=== PATIENT | male | born 1930 | race Caucasian/White ===

== ENCOUNTER 2016-12-01 18:06 | Emergency (ER) | payer OTHER ==
[~2016-12-01 18:06] MED LIST: ARICEPT10 MG PO; ASPIRIN ADULT L81 MG PO; CLARITIN10 M2 PO; CLINDAMYCIN HC300 MG PO; CLONAZEPAM0.5 MG PO; COLACE100 MG; COMBIVENT RESPIMAT IN; DONEPEZIL HCL10 M1 PO; FLOMAX0.4 MG PO; FLOVENT DISKUS50 MCG; FLUTICASONE PR50 MCG; KLONOPIN0.5 MG PO; LEVAQUIN500 MG PO; LEVOTHYROXINE50 MCG PO; MIRALAX3350 N1 PO; NORCO1 TA1 PO; O2 IN; PRILOSEC20 MG PO; TRAZODONE HCL50 MG PO; TUMS500 MG PO; ZOLOFT50 MG PO; ZYRTEC ALLERGY10 MG
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
--- NOTE | 2016-12-01 20:46 | ED ORDER SUMMARY ---
..... Patient: MERRILL GONZALEZ OrderSheet [facility] VisitID: [id number] [place] [address] 86y, M Registration Date/Time: 12/01/2016 ORDER SHEET Weight: 90.7 kg (estimated) Allergies: No Known Drug Allergy GENERAL ORDERS: UA-Culture if indicated Urgent (18:27 12/01/2016 PHutchinson DO) (Ack 18:29 KHoerner) (19:19 SBalde R.N.) Cardiac Panel Stat (18:27 12/01/2016 PHutchinson DO) (Ack 18:29 KHoerner) (19:19 SBalde R.N.) BNP Urgent (18:12/01/2016 PHutchinson DO) (Ack 18:29 KHoerner) (19:19 SBalde R.N.) D-Dimer Urgent (18:12/01/2016 PHutchinson DO) (Ack 18:29 KHoerner) (19:19 SBalde R.N.) Amylase Urgent (18:27 12/01/2016 PHutchinson DO) (Ack 18:29 KHoerner) (19:19 SBalde R.N.) PT with INR Urgent (18:27 12/01/2016 PHutchinson DO) (Ack 18:29 KHoerner) (19:19 SBalde R.N.) Urine Drug Screen Urgent (18:27 12/01/2016 PHutchinson DO) (Ack 18:29 KHoerner) (19:19 SBalde R.N.) TSH Urgent (18:27 12/01/2016 PHutchinson DO) (Ack 18:29 KHoerner) (19:19 SBalde R.N.) Pulse oximeter (18:27 12/01/2016 PHutchinson DO) (19:19 SBalde R.N.) Vitals (18:12/01/2016 PHutchinson DO) (19:19 SBalde R.N.) POC Glucose (18:12/01/2016 PHutchinson DO) (19:14 RKaruga) CT Head wo Cont (old appearing right facial ecchymosis) Urgent (18:46 12/01/2016 [facility]) (Ack 18:47 Kim) (Cancelled: Patient Kgigeod35:46 Annetta Arriaza) MEDICATION ORDERS: IV FLUIDS: IV NS : initial bolus 500 mL (1000 mL/hr), then 250 mL/hr for X2 (NOW) (18:27 12/01/2016 [facility]) (19:20 Annetta Mendez.Mary Beth) Ceftriaxone IV 1 gm/50mL (NOW) (19:22 12/01/2016 [facility]) (20:11 Katie R.NAmalia) ORDER SHEET NOTES: [Electronically signed by Caroline Molina R.N. (21:53 12/01/2016)] [Electronically signed by Yusef Fleming DO (23:30 12/01/2016)] [Electronically locked/signed by Caroline Molina R.N. (21:53 12/01/2016)]
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
--- NOTE | 2016-12-01 20:46 | ED CLINICAL REPORT ---
Clinical Report - Physicians/Mid Levels Formerly [facility] [address] [place] [address] 12/01/2016 18:08 Patient: MERRILL GONZALEZ Time Seen: 18:26. Arrived- By private vehicle. Historian- patient and family. HISTORY OF PRESENT ILLNESS Chief Complaint: CHANGED MENTAL STATUS and CONFUSION. Combative. This started today and is still present. It was gradual in onset and has been waxing/waning. The patient has been confused. History of chronic dementia. No alcohol recently or recent drug use. No weakness, numbness or recent fall. No difficulty walking. Usually has normal mobility. Is not usually alert and oriented X3. Similar symptoms previously: Recent medical care: Not recently seen/assessed. REVIEW OF SYSTEMS No fever, headache, dizziness, chest pain or difficulty breathing. No cough, sputum production, sore throat, abdominal pain or nausea. No diarrhea, black stools, difficulty with urination, skin rash or joint pain. No vomiting or bloody stools. The patient sustained a head injury (pt denies this, but is noted to have old appearing right facial injury - nothing new acute per patient and son). All systems otherwise negative, except as recorded above. PAST HISTORY ( PCP: Dr Acuna; New provider: Lelia Hale Pneumonia. Environmental Allergies. Dementia. Thyroid Disease. Depression. Benign Prostatic Hypertrophy. Anxiety Reaction. Constipation. Hypertension SURGERIES: Cataract Surgery.). Medications: Aricept Oral 10 mg. Claritin Oral (Tablet 10 mg). ClonazePAM Oral 0.5 mg, daily. Colace Oral 100 mg. Combivent Respimat Inhalation. Docusate Calcium Oral. Domepezil 10mg , at bedtime. Flomax Oral 0.4 mg. Levothyroxine Sodium Oral 50 mcg. Oxygen 2L/nc continuous. Zoloft Oral 25 mg, daily. Zyrtec. Allergies: No Known Drug Allergy. SOCIAL HISTORY No alcohol use or drug use. Residence: lives with grand daughter Is a local resident. He lives with a family member. Prior service; He is a member of the [employer] He once resided in [place]. ADDITIONAL NOTES The nursing notes have been reviewed. PHYSICAL EXAM Vital Signs: 12/01/2016 18:21 BP: 158/91. Temp: 97.5 F. Appearance: Alert. Anxious. The patient is agitated. Head: No tenderness or swelling. Mild ecchymosis in the right frontal and scientologist region. Eyes: Pupils equal, round and reactive to light. ENT: Moist mucous membranes. Pharynx normal. Neck: Normal inspection. Neck supple. CVS: Tachycardia. Pulses normal. Respiratory: No respiratory distress. Abdomen: Soft and nontender. Back: Normal inspection. Skin: Skin warm and dry. Extremities: Extremities exhibit normal ROM. No calf tenderness. Neuro: Alert. Altered mental status. Eyes open spontaneously. Best verbal response: disoriented. Best motor response: obeys commands. Cranial nerves normal (as tested). No cerebellar findings. No motor deficit. No sensory deficit. No depression of the gag reflex. LABS, X-RAYS, AND EKG Laboratory Tests: UA-Culture if indicated: (YASMINE: 12/01/2016 00:01) ( MsgRcvd 12/01/2016 19:21) Final results Test Result Flag Units (Reference) URINE COLOR YELLOW 1 m.l. patient sample submitted. URINE APPEARANCE CLEAR URINE GLUCOSE NEGATIVE (NEGATIVE) URINE BILIRUBIN NEGATIVE (NEGATIVE) URINE KETONE NEGATIVE (NEGATIVE) URINE SPECIFIC GRAVITY 1.015 (1.010-1.030) URINE PH 7.5 (5.0-8.0) URINE PROTEIN TRACE (NEGATIVE) URINE UROBILINOGEN 0.2 EU/dL (0.2-1.0) URINE NITRITE NEGATIVE (NEGATIVE) URINE BLOOD TRACE-INTACT (NEGATIVE) URINE LEUK ESTERASE TRACE (NEGATIVE) URINE RBC 1-3 rbc/hpf (0-1) URINE WBC 10-15 wbc/hpf (0-1) URINE EPITHELIAL CELLS 0-1 EPI/hpf (0-5) URINE BACTERIA FEW (1+) (NONE SEEN) URINE COMMENT CULTURE INDICATED URINE CULTURES ARE SET-UP BASED ON THE FOLLOWING CRITERIA:POSITIVE NITRITEPOSITIVE LEUKOCYTE ESTERASEGREATER THAN 10 WHITE BLOOD CELLSMODERATE (2+) OR GREATER BACTERIA CBC w Diff: (YASMINE: 12/01/2016 18:51) ( MsgRcvd 12/01/2016 19:04) Final results Test Result Flag Units (Reference) WHITE BLOOD COUNT 8.3 K/uL (4.5-11.5) RED BLOOD COUNT 5.11 M/uL (4.50-5.90) HEMOGLOBIN 15.1 gm/dL (13.5-17.5) HEMATOCRIT 46.3 % (41.0-53.0) MEAN CELL VOLUME 91 fL (80-100) MEAN CORPUSCULAR HGB 30 pg (26-34) MEAN CORPUSCULAR HGB CONC 33 g/dL (31-37) RED CELL DISTRIBUTION WIDTH 13.2 % (11.6-14.8) PLATELET COUNT 320 K/uL (150-400) LYMPH % 28.9 % (25-40) MONO % 4.3 % (3-14) GRANULOCYTE % 66.8 PT with INR: (YASMINE: 12/01/2016 18:51) ( [facility] 12/01/2016 19:16) Final results Test Result Flag Units (Reference) INR 1.0 (0.8-1.2) Low Intensity Therapy: INR 1.5-2.0 PT range 18.5-23.1Mod.Intensity Therapy: INR 2.0-3.0 PT range 23.1-31.5High Intensity Therapy: INR 2.5-3.5 PT range 27.4-35.5High Intensity Therapy 2: INR 3.0-4.0 PT range 31.5-39.3 D-DIMER QUANTITATIVE < 0.27 L ug/mLFEU (0.27-0.52) The primary value of this quantitative assay relates toits negative predictive value (i.e. exclusion) of pulmonaryembolism/deep vein thrombosis/DIC.Elevated levels of d-dimer may also occur with:, age, cancer, inflammation, liver disease,post-op, infection, hematoma, coronary disease, peripheralarteriopathy, bleeding disorders and thrombolytic treatment.Results should be correlated with other clinical andradiological data.Testing Methodology: Latex Immunoassay Urine Drug Screen: (YASMINE: 12/01/2016 00:01) ( [facility] 12/01/2016 19:31) Final results Test Result Flag Units (Reference) AMPHETAMINE/METHAMPHETAMINE NEGATIVE (NEGATIVE) BARBITURATE NEGATIVE (NEGATIVE) BENZODIAZEPINE NEGATIVE (NEGATIVE) CANNABINOID NEGATIVE (NEGATIVE) COCAINE NEGATIVE (NEGATIVE) ECSTASY NEGATIVE (NEGATIVE) METHADONE NEGATIVE (NEGATIVE) OPIATE NEGATIVE (NEGATIVE) The urine drug screen is a qualitative screening test fordrug overdose and abuse. All screen results should beconsidered as presumptive.Drugs screened for are as follows:BenzodiazepinesCocaineAmphetamines/MetamphetaminesTHC (Tetrahydrocannabinol)OpiatesBarbituratesEcstasyMethadonePositive results are unconfirmed. For confirmation, notifythe lab for the specimen to be sent to the reference lab.All confirmations must be performed by a differentmethodology.The ingestion of natural herbal and plant productscontaining Ephedra/Ephedra metabolites can produce in urineone or more substances capable of cross reacting withamphetamine/methamphetamine immunoassays. These testsprovide a preliminary result only. A more specificalternative chemical method must be used to obtain aconfirmed analytical result. BNP: (YASMINE: 12/01/2016 18:51) ( [facility] 12/01/2016 19:25) Final results Test Result Flag Units (Reference) B-TYPE NATRIURETIC PEPTIDE 55.8 pg/ml (5-100) Amylase: (YASMINE: 12/01/2016 18:51) ( [facility] 12/01/2016 19:32) Final results Test Result Flag Units (Reference) AMYLASE 63 U/L (25-115) THYROID STIMULATING HORMONE 2.371 uIU/mL (0.30-3.74) CHEM 13 PANEL: (YASMINE: 12/01/2016 18:51) ( [facility] 12/01/2016 19:22) Final results Test Result Flag Units (Reference) GLUCOSE 88 mg/dL (70-110) BUN 24 H mg/dL (7-18) CREATININE 1.3 mg/dL (0.6-1.3) Estimated GFR 55.63 mL/min Estimated GFR- >60 mL/min Note: Persistent reduction over 3 months in eGFR<60 mL/min/1.73 m2 defines CKD. Patients with eGFR values>=60 mL/min/1.73 m2 may also have CKD if evidence ofpersistent proteinuria. Additional information may be foundat www.kidney.org. SODIUM 143 mmol/L (136-145) POTASSIUM 3.8 mmol/L (3.5-5.1) CHLORIDE 103 mmol/L (98-107) CARBON DIOXIDE 28 mmol/L (21-32) CALCIUM 9.5 mg/dL (8.5-10.1) TOTAL PROTEIN 7.9 g/dL (6.4-8.2) ALBUMIN 4.2 g/dL (3.3-5.0) BILIRUBIN, TOTAL 1.0 mg/dL (0.0-1.0) ALKALINE PHOSPHATASE 136 H U/L (46-116) AST (SGOT) 32 U/L (15-37) ALT (SGPT) 30 U/L (12-78) CPK 214 U/L (24-260) MAGNESIUM 2.0 mg/dL (1.8-2.4) TROPONIN I <0.05 L ng/mL (0.00-1.5) TROPONIN REFERENCE RANGE:<0.1 NEGATIVE0.1-1.5 INDETERMINANT>1.5 POSITIVE . Microbiology: Urine culture ordered. Pulse Oximetry: 12/01/2016 18:41 O2 saturation: 100%. (FIO2 - room air). Interpretation: normal. PROGRESS AND PROCEDURES Course of Care: Normal Saline 1 liter IVPB given. Ceftriaxone 1gm IVP given. 20:45 12/01/16. Patient is stable. Physical exam findings are improved. Symptoms much better. All c/w UTI and mild dehydration in the setting of underlying dementia. Patient/family counseled. Old ED records reviewed. Disposition: Discharged. Condition: stable and improved. CLINICAL IMPRESSION Acute mental status change with confusion. Acute urinary tract infection with cystitis. INSTRUCTIONS Drink plenty of fluids. Warnings: Further evaluation is necessary in order to recheck abnormal lab, obtain test results, conduct further tests and assess the possibility of serious illness. It is very important to follow up with a physician. GENERAL WARNINGS: Return or contact your physician immediately if your condition worsens or changes unexpectedly, if not improving as expected, or if other problems arise. Your Current Medications: CONTINUE TAKING THE FOLLOWING MEDICATIONS: Aricept Oral : 10 mg. Aspirin Oral : Tablet Chewable 81 mg. Claritin Oral : Tablet 10 mg. Colace Oral : 100 mg. Combivent Respimat Inhalation. Docusate Calcium Oral. Domepezil 10mg * : at bedtime. Flomax Oral : 0.4 mg. Levothyroxine Sodium Oral : 50 mcg. Mens Multi Vitamin & Mineral Oral. Montelukast Sodium Oral. Omeprazole Oral : 20 mg daily. Oxygen 2L/nc continuous*. TraZODone HCl Oral : 50 mg at bedtime. Vitamin B-6 Oral. Zyrtec*. Prescription Medications: Bactrim DS 800 mg / 160 mg: Take 1 tablet orally every 12 hours for 7 days. Dispense fourteen (14). No refills. Substitution is permissible. OTC Medications: Acetaminophen (available over the counter): take according to label instructions. Follow-up: Follow up with your doctor tomorrow as scheduled. Follow-up with: Gamal Acuna MD, Family Practice, , [facility], [address] [facility], [address] Follow up. Reason for referral: You may go to the walk-in clinic or to your primary care provider as needed in the next 2 days - sooner if worse. (Electronically signed by Yusef Fleming DO 12/01/2016 23:30)
--- NOTE | 2016-12-01 20:46 | ED CLINICAL REPORT ---
Clinical Report - Physicians/Mid Levels [facility] [address] [place] [address] 12/01/2016 18:08 Patient: MERRILL GONZALEZ Time Seen: 18:26. Arrived- By private vehicle. Historian- patient and family. HISTORY OF PRESENT ILLNESS Chief Complaint: CHANGED MENTAL STATUS and CONFUSION. Combative. This started today and is still present. It was gradual in onset and has been waxing/waning. The patient has been confused. History of chronic dementia. No alcohol recently or recent drug use. No weakness, numbness or recent fall. No difficulty walking. Usually has normal mobility. Is not usually alert and oriented X3. Similar symptoms previously: Recent medical care: Not recently seen/assessed. REVIEW OF SYSTEMS No fever, headache, dizziness, chest pain or difficulty breathing. No cough, sputum production, sore throat, abdominal pain or nausea. No diarrhea, black stools, difficulty with urination, skin rash or joint pain. No vomiting or bloody stools. The patient sustained a head injury (pt denies this, but is noted to have old appearing right facial injury - nothing new acute per patient and son). All systems otherwise negative, except as recorded above. PAST HISTORY ( PCP: Dr Acuna; New provider: Lelia Hale Pneumonia. Environmental Allergies. Dementia. Thyroid Disease. Depression. Benign Prostatic Hypertrophy. Anxiety Reaction. Constipation. Hypertension SURGERIES: Cataract Surgery.). Medications: Aricept Oral 10 mg. Claritin Oral (Tablet 10 mg). ClonazePAM Oral 0.5 mg, daily. Colace Oral 100 mg. Combivent Respimat Inhalation. Docusate Calcium Oral. Domepezil 10mg , at bedtime. Flomax Oral 0.4 mg. Levothyroxine Sodium Oral 50 mcg. Oxygen 2L/nc continuous. Zoloft Oral 25 mg, daily. Zyrtec. Allergies: No Known Drug Allergy. SOCIAL HISTORY No alcohol use or drug use. Residence: lives with grand daughter Is a local resident. He lives with a family member. Prior service; He is a member of the [employer]; He once resided in [place]. ADDITIONAL NOTES The nursing notes have been reviewed. PHYSICAL EXAM Vital Signs: 12/01/2016 18:21 BP: 158/91. Temp: 97.5 F. Appearance: Alert. Anxious. The patient is agitated. Head: No tenderness or swelling. Mild ecchymosis in the right frontal and religion region. Eyes: Pupils equal, round and reactive to light. ENT: Moist mucous membranes. Pharynx normal. Neck: Normal inspection. Neck supple. CVS: Tachycardia. Pulses normal. Respiratory: No respiratory distress. Abdomen: Soft and nontender. Back: Normal inspection. Skin: Skin warm and dry. Extremities: Extremities exhibit normal ROM. No calf tenderness. Neuro: Alert. Altered mental status. Eyes open spontaneously. Best verbal response: disoriented. Best motor response: obeys commands. Cranial nerves normal (as tested). No cerebellar findings. No motor deficit. No sensory deficit. No depression of the gag reflex. LABS, X-RAYS, AND EKG Laboratory Tests: UA-Culture if indicated: (YASMINE: 12/01/2016 00:01) ( MsgRcvd 12/01/2016 19:21) Final results Test Result Flag Units (Reference) URINE COLOR YELLOW 1 m.l. patient sample submitted. URINE APPEARANCE CLEAR URINE GLUCOSE NEGATIVE (NEGATIVE) URINE BILIRUBIN NEGATIVE (NEGATIVE) URINE KETONE NEGATIVE (NEGATIVE) URINE SPECIFIC GRAVITY 1.015 (1.010-1.030) URINE PH 7.5 (5.0-8.0) URINE PROTEIN TRACE (NEGATIVE) URINE UROBILINOGEN 0.2 EU/dL (0.2-1.0) URINE NITRITE NEGATIVE (NEGATIVE) URINE BLOOD TRACE-INTACT (NEGATIVE) URINE LEUK ESTERASE TRACE (NEGATIVE) URINE RBC 1-3 rbc/hpf (0-1) URINE WBC 10-15 wbc/hpf (0-1) URINE EPITHELIAL CELLS 0-1 EPI/hpf (0-5) URINE BACTERIA FEW (1+) (NONE SEEN) URINE COMMENT CULTURE INDICATED URINE CULTURES ARE SET-UP BASED ON THE FOLLOWING CRITERIA:POSITIVE NITRITEPOSITIVE LEUKOCYTE ESTERASEGREATER THAN 10 WHITE BLOOD CELLSMODERATE (2+) OR GREATER BACTERIA CBC w Diff: (YASMINE: 12/01/2016 18:51) ( MsgRcvd 12/01/2016 19:04) Final results Test Result Flag Units (Reference) WHITE BLOOD COUNT 8.3 K/uL (4.5-11.5) RED BLOOD COUNT 5.11 M/uL (4.50-5.90) HEMOGLOBIN 15.1 gm/dL (13.5-17.5) HEMATOCRIT 46.3 % (41.0-53.0) MEAN CELL VOLUME 91 fL (80-100) MEAN CORPUSCULAR HGB 30 pg (26-34) MEAN CORPUSCULAR HGB CONC 33 g/dL (31-37) RED CELL DISTRIBUTION WIDTH 13.2 % (11.6-14.8) PLATELET COUNT 320 K/uL (150-400) LYMPH % 28.9 % (25-40) MONO % 4.3 % (3-14) GRANULOCYTE % 66.8 PT with INR: (YASMINE: 12/01/2016 18:51) ( [facility] 19:16) Final results Test Result Flag Units (Reference) INR 1.0 (0.8-1.2) Low Intensity Therapy: INR 1.5-2.0 PT range 18.5-23.1Mod.Intensity Therapy: INR 2.0-3.0 PT range 23.1-31.5High Intensity Therapy: INR 2.5-3.5 PT range 27.4-35.5High Intensity Therapy 2: INR 3.0-4.0 PT range 31.5-39.3 D-DIMER QUANTITATIVE < 0.27 L ug/mLFEU (0.27-0.52) The primary value of this quantitative assay relates toits negative predictive value (i.e. exclusion) of pulmonaryembolism/deep vein thrombosis/DIC.Elevated levels of d-dimer may also occur with:, age, cancer, inflammation, liver disease,post-op, infection, hematoma, coronary disease, peripheralarteriopathy, bleeding disorders and thrombolytic treatment.Results should be correlated with other clinical andradiological data.Testing Methodology: Latex Immunoassay Urine Drug Screen: (YASMINE: 12/01/2016 00:01) ( [facility] 12/01/2016 19:31) Final results Test Result Flag Units (Reference) AMPHETAMINE/METHAMPHETAMINE NEGATIVE (NEGATIVE) BARBITURATE NEGATIVE (NEGATIVE) BENZODIAZEPINE NEGATIVE (NEGATIVE) CANNABINOID NEGATIVE (NEGATIVE) COCAINE NEGATIVE (NEGATIVE) ECSTASY NEGATIVE (NEGATIVE) METHADONE NEGATIVE (NEGATIVE) OPIATE NEGATIVE (NEGATIVE) The urine drug screen is a qualitative screening test fordrug overdose and abuse. All screen results should beconsidered as presumptive.Drugs screened for are as follows:BenzodiazepinesCocaineAmphetamines/MetamphetaminesTHC (Tetrahydrocannabinol)OpiatesBarbituratesEcstasyMethadonePositive results are unconfirmed. For confirmation, notifythe lab for the specimen to be sent to the reference lab.All confirmations must be performed by a differentmethodology.The ingestion of natural herbal and plant productscontaining Ephedra/Ephedra metabolites can produce in urineone or more substances capable of cross reacting withamphetamine/methamphetamine immunoassays. These testsprovide a preliminary result only. A more specificalternative chemical method must be used to obtain aconfirmed analytical result. BNP: (YASMINE: 12/01/2016 18:51) ( [facility] 12/01/2016 19:25) Final results Test Result Flag Units (Reference) B-TYPE NATRIURETIC PEPTIDE 55.8 pg/ml (5-100) Amylase: (YAMSINE: 12/01/2016 18:51) ( [facility] 12/01/2016 19:32) Final results Test Result Flag Units (Reference) AMYLASE 63 U/L (25-115) THYROID STIMULATING HORMONE 2.371 uIU/mL (0.30-3.74) CHEM 13 PANEL: (YASMINE: 12/01/2016 18:51) ( [facility] 12/01/2016 19:22) Final results Test Result Flag Units (Reference) GLUCOSE 88 mg/dL (70-110) BUN 24 H mg/dL (7-18) CREATININE 1.3 mg/dL (0.6-1.3) Estimated GFR 55.63 mL/min Estimated GFR- >60 mL/min Note: Persistent reduction over 3 months in eGFR<60 mL/min/1.73 m2 defines CKD. Patients with eGFR values>=60 mL/min/1.73 m2 may also have CKD if evidence ofpersistent proteinuria. Additional information may be foundat www.kidney.org. SODIUM 143 mmol/L (136-145) POTASSIUM 3.8 mmol/L (3.5-5.1) CHLORIDE 103 mmol/L (98-107) CARBON DIOXIDE 28 mmol/L (21-32) CALCIUM 9.5 mg/dL (8.5-10.1) TOTAL PROTEIN 7.9 g/dL (6.4-8.2) ALBUMIN 4.2 g/dL (3.3-5.0) BILIRUBIN, TOTAL 1.0 mg/dL (0.0-1.0) ALKALINE PHOSPHATASE 136 H U/L (46-116) AST (SGOT) 32 U/L (15-37) ALT (SGPT) 30 U/L (12-78) CPK 214 U/L (24-260) MAGNESIUM 2.0 mg/dL (1.8-2.4) TROPONIN I <0.05 L ng/mL (0.00-1.5) TROPONIN REFERENCE RANGE:<0.1 NEGATIVE0.1-1.5 INDETERMINANT>1.5 POSITIVE . Microbiology: Urine culture ordered. Pulse Oximetry: 12/01/2016 18:41 O2 saturation: 100%. (FIO2 - room air). Interpretation: normal. PROGRESS AND PROCEDURES Course of Care: Normal Saline 1 liter IVPB given. Ceftriaxone 1gm IVP given. 20:45 12/01/16. Patient is stable. Physical exam findings are improved. Symptoms much better. All c/w UTI and mild dehydration in the setting of underlying dementia. Patient/family counseled. Old ED records reviewed. Disposition: Discharged. Condition: stable and improved. CLINICAL IMPRESSION Acute mental status change with confusion. Acute urinary tract infection with cystitis. INSTRUCTIONS Drink plenty of fluids. Warnings: Further evaluation is necessary in order to recheck abnormal lab, obtain test results, conduct further tests and assess the possibility of serious illness. It is very important to follow up with a physician. GENERAL WARNINGS: Return or contact your physician immediately if your condition worsens or changes unexpectedly, if not improving as expected, or if other problems arise. Your Current Medications: CONTINUE TAKING THE FOLLOWING MEDICATIONS: Aricept Oral : 10 mg. Aspirin Oral : Tablet Chewable 81 mg. Claritin Oral : Tablet 10 mg. Colace Oral : 100 mg. Combivent Respimat Inhalation. Docusate Calcium Oral. Domepezil 10mg * : at bedtime. Flomax Oral : 0.4 mg. Levothyroxine Sodium Oral : 50 mcg. Mens Multi Vitamin & Mineral Oral. Montelukast Sodium Oral. Omeprazole Oral : 20 mg daily. Oxygen 2L/nc continuous*. TraZODone HCl Oral : 50 mg at bedtime. Vitamin B-6 Oral. Zyrtec*. Prescription Medications: Bactrim DS 800 mg / 160 mg: Take 1 tablet orally every 12 hours for 7 days. Dispense fourteen (14). No refills. Substitution is permissible. OTC Medications: Acetaminophen (available over the counter): take according to label instructions. Follow-up: Follow up with your doctor tomorrow as scheduled. Follow-up with: Gamal Acuna MD, Family Practice, , [facility], [address] [facility], [address] Follow up. Reason for referral: You may go to the walk-in clinic or to your primary care provider as needed in the next 2 days - sooner if worse. (Electronically signed by Yusef Fleming DO 12/01/2016 23:30)
--- NOTE | 2016-12-01 20:46 | ED ORDER SUMMARY ---
..... Patient: MERRILL GONZALEZ OrderSheet [facility] VisitID: [id number] [place] [address] 86y, M Registration Date/Time: 12/01/2016 ORDER SHEET Weight: 90.7 kg (estimated) Allergies: No Known Drug Allergy GENERAL ORDERS: UA-Culture if indicated Urgent (18:27 12/01/2016 PHutchinson DO) (Ack 18:29 KHoerner) (19:19 SBalde R.N.) Cardiac Panel Stat (18:27 12/01/2016 PHutchinson DO) (Ack 18:29 KHoerner) (19:19 SBalde R.N.) BNP Urgent (18:12/01/2016 PHutchinson DO) (Ack 18:29 KHoerner) (19:19 SBalde R.N.) D-Dimer Urgent (18:12/01/2016 PHutchinson DO) (Ack 18:29 KHoerner) (19:19 SBalde R.N.) Amylase Urgent (18:27 12/01/2016 PHutchinson DO) (Ack 18:29 KHoerner) (19:19 SBalde R.N.) PT with INR Urgent (18:27 12/01/2016 PHutchinson DO) (Ack 18:29 KHoerner) (19:19 SBalde R.N.) Urine Drug Screen Urgent (18:27 12/01/2016 PHutchinson DO) (Ack 18:29 KHoerner) (19:19 SBalde R.N.) TSH Urgent (18:27 12/01/2016 PHutchinson DO) (Ack 18:29 KHoerner) (19:19 SBalde R.N.) Pulse oximeter (18:27 12/01/2016 PHutchinson DO) (19:19 SBalde R.N.) Vitals (18:12/01/2016 PHutchinson DO) (19:19 SBalde R.N.) POC Glucose (18:12/01/2016 PHutchinson DO) (19:14 RKaruga) CT Head wo Cont (old appearing right facial ecchymosis) Urgent (18:46 12/01/2016 [facility]) (Ack 18:47 Kim) (Cancelled: Patient Btrryge03:46 Annetta Arriaza) MEDICATION ORDERS: IV FLUIDS: IV NS : initial bolus 500 mL (1000 mL/hr), then 250 mL/hr for X2 (NOW) (18:27 12/01/2016 [facility]) (19:20 Annetta Mendez.Mary Beth) Ceftriaxone IV 1 gm/50mL (NOW) (19:22 12/01/2016 [facility]) (20:11 Katie R.NAmalia) ORDER SHEET NOTES: [Electronically signed by Caroline Molina R.N. (21:53 12/01/2016)] [Electronically signed by Yusef Fleming DO (23:30 12/01/2016)] [Electronically locked/signed by Caroline Molina R.N. (21:53 12/01/2016)]
--- NOTE | 2016-12-01 23:30 | ED MED RECONCILIATION SUMMARY ---
Patient: MERRILL GONZALEZ Medication Reconciliation Report [facility] VisitID: [id number] [address] [place] [address] 86y, M Registration Date/Time: 12/01/2016 Weight: 90.7 kg Height/Length: 69 in. BMI: 29.5 ALLERGIES: No Known Drug Allergy The patient's Home Medications are listed below: CONTINUE TAKING THE FOLLOWING MEDICATIONS: Aricept Oral 10 mg Aspirin Oral (81 mg) Claritin Oral (10 mg) Colace Oral 100 mg Combivent Respimat Inhalation Docusate Calcium Oral Domepezil 10mg , at bedtime Flomax Oral 0.4 mg Levothyroxine Sodium Oral 50 mcg Mens Multi Vitamin & Mineral Oral Montelukast Sodium Oral Omeprazole Oral 20 mg, daily Oxygen 2L/nc continuous TraZODone HCl Oral 50 mg, at bedtime Vitamin B-6 Oral Zyrtec The source(s) of the original Home Medication information: Not obtained. The following Medications were given to the patient in the Emergency Department: IV NS IV Fluids bolus 500 mL over 30 minute(s), then 250 mL/hr, administered: 12/01/2016 7:19:00 PM Ceftriaxone [IVPB] IVPB bolus 0, then 1 gm 50 mL/hr, administered: 12/01/2016 8:09:00 PM The following Medications were prescribed to the patient: Acetaminophen (available over the counter): take according to label instructions. -- Yusef Fleming DO Bactrim DS 800 mg / 160 mg: Take 1 tablet orally every 12 hours for 7 days. Dispense fourteen (14). No refills. Substitution is permissible. -- Yusef Fleming DO
--- NOTE | 2016-12-01 23:30 | ED MED RECONCILIATION SUMMARY ---
Patient: MERRILL GONZALEZ Medication Reconciliation Report [facility] VisitID: [id number] [address] [place] [address] 86y, M Registration Date/Time: 12/01/2016 Weight: 90.7 kg Height/Length: 69 in. BMI: 29.5 ALLERGIES: No Known Drug Allergy The patient's Home Medications are listed below: CONTINUE TAKING THE FOLLOWING MEDICATIONS: Aricept Oral 10 mg Aspirin Oral (81 mg) Claritin Oral (10 mg) Colace Oral 100 mg Combivent Respimat Inhalation Docusate Calcium Oral Domepezil 10mg , at bedtime Flomax Oral 0.4 mg Levothyroxine Sodium Oral 50 mcg Mens Multi Vitamin & Mineral Oral Montelukast Sodium Oral Omeprazole Oral 20 mg, daily Oxygen 2L/nc continuous TraZODone HCl Oral 50 mg, at bedtime Vitamin B-6 Oral Zyrtec The source(s) of the original Home Medication information: Not obtained. The following Medications were given to the patient in the Emergency Department: IV NS IV Fluids bolus 500 mL over 30 minute(s), then 250 mL/hr, administered: 12/01/2016 7:19:00 PM Ceftriaxone [IVPB] IVPB bolus 0, then 1 gm 50 mL/hr, administered: 12/01/2016 8:09:00 PM The following Medications were prescribed to the patient: Acetaminophen (available over the counter): take according to label instructions. -- Yusef Fleming DO Bactrim DS 800 mg / 160 mg: Take 1 tablet orally every 12 hours for 7 days. Dispense fourteen (14). No refills. Substitution is permissible. -- Yusef Fleming DO
--- NOTE | 2016-12-01 23:30 | ED DISCHARGE INSTRUCTIONS ---
Patient: MERRILL GONZALEZ General Instructions [facility] VisitID: [id number] Jered Ballard [place], [place] [id number] 86y, M Registration Date/Time: 12/01/2016 Acute mental status change with confusion. Acute urinary tract infection with cystitis. INSTRUCTIONS Drink plenty of fluids. Warnings: Further evaluation is necessary in order to recheck abnormal lab, obtain test results, conduct further tests and assess the possibility of serious illness. It is very important to follow up with a physician. GENERAL WARNINGS: Return or contact your physician immediately if your condition worsens or changes unexpectedly, if not improving as expected, or if other problems arise. Your Current Medications: CONTINUE TAKING THE FOLLOWING MEDICATIONS: Aricept Oral : 10 mg. Aspirin Oral : Tablet Chewable 81 mg. Claritin Oral : Tablet 10 mg. Colace Oral : 100 mg. Combivent Respimat Inhalation. Docusate Calcium Oral. Domepezil 10mg * : at bedtime. Flomax Oral : 0.4 mg. Levothyroxine Sodium Oral : 50 mcg. Mens Multi Vitamin & Mineral Oral. Montelukast Sodium Oral. Omeprazole Oral : 20 mg daily. Oxygen 2L/nc continuous*. TraZODone HCl Oral : 50 mg at bedtime. Vitamin B-6 Oral. Zyrtec*. Prescription Medications: Bactrim DS 800 mg / 160 mg: Take 1 tablet orally every 12 hours for 7 days. Dispense fourteen (14). No refills. Substitution is permissible. OTC Medications: Acetaminophen (available over the counter): take according to label instructions. Follow-up: Follow up with your doctor tomorrow as scheduled. Follow-up with: Gamal Acuna MD, Family Practice, , [facility], [address] [place], [place] [address]nd [facility] [place], [id number] Follow up. Reason for referral: You may go to the walk-in clinic or to your primary care provider as needed in the next 2 days - sooner if worse. ADDITIONAL INFORMATION Confusion Confusion is a change in a persons ability to think clearly. There may be trouble recognizing familiar people and places, or knowing what day it is. Memory, judgement and decision-making may also be affected. In severe cases there may be limited or no response to verbal commands. Confusion may occur suddenly or develop gradually over time. There are many injuries and medical conditions that can cause this problem. These include brain injury, side effect of medication, intoxication, withdrawal from drugs, infection, stroke, dementia,mental illness and other causes. The exam and testing today did not show the cause of this problem. Further testing will be needed. Specific treatment and hope for recovery depend on the cause of this symptom. Home Care: Be sure someone is with the confused person at all times. He/she should not be left alone or unsupervised. Keep medicines (prescription and [id number]) in a secure place, under the caregivers control. A person with confusion should not be allowed to take their own medicines.This needs to be supervised by the caregiver. Ways to help a person with confusion: Activities:Establish a daily routine. Change can be a source of stress for someone with confusion. Make a time schedule for common tasks such as: bathing, dressing, taking medicines, meals, going for walks, shopping, naps and bed time. Communication:Speak slowly and clearly with a gentle tone of voice. Use short simple words and sentences. Ask one question at a time. Do not interrupt, criticize or argue. Be calm and supportive. Use friendly facial expressions. Use pointing and touching to help communicate. If there has been loss of long-term memory, do not ask questions about past events. This would only cause frustration for the person. Behavioral tips:Use lists, signs, family photos, clocks and calendars as memory aids. Label cabinets and drawers. Try to distract, not confront, the patient. When he/she becomes frustrated or upset, redirect his/her attention to eating or some other activity of interest. Medical-Legal tips: If this proves to be a permanent condition, talk to your doctor and/or vice president of instruction about getting a Power of Cargo Mate for health care and for financial decisions. It is best to do this while the person can still sign legal documents and make his/raul own legal decisions. Otherwise, a court order will be required. Follow-Up with the patients doctor or as advised by our staff for further testing. Get Prompt Medical Attention if any of the following occur: Frequent falling Refusal to eat or drink Violent behavior or behavior becomes too difficult to manage at home Increased drowsiness, or failure to respond normally Increasing headache, nausea or repeated vomiting Numbness or weakness of the face, one arm or one leg Slurred speech, trouble speaking, walking or seeing Fainting spell, dizziness or seizure Unexplained fever over 100.4 F (38.0 C) oral Bladder Infection,Male (Adult) A bladder infection ("cystitis" or "UTI") usually causes a constant urge to urinate, and a burning when passing urine. Urine may be cloudy, smelly or dark. There may be also be pain in the lower abdomen. Cystitis in males is not common. It may be caused by a partial blockage in the urinary system that keeps the bladder from emptying completely. This is most often related to an enlarged prostate gland. Home Care: Drink lots of fluids (at least 6-8 glasses a day). This will flush the bacteria out of your bladder. Avoid sexual intercourse until your symptoms are gone. Avoid caffeine, alcohol, and spicy foods. They could irritate the bladder. A bladder infection is treated with antibiotics. You may also be given Pyridium (generic - phenazopyridine) to reduce burning with urination. This will cause urine to become a bright orange color, which can stain clothing. Follow Up with your doctor or this facility if ALL symptoms have not cleared within five days. It is important to keep your follow up appointment to discuss with your doctor the need for further tests of the urinary tract. Get Prompt Medical Attention if any of the following occur: Fever of 100.4F (38C) or higher, or as directed by your healthcare provider No improvement by the third day of treatment Increasing back or abdominal pain Repeated vomiting; unable to keep medicine down Weakness, dizziness or fainting Sulfamethoxazole, Trimethoprim Oral tablet What is this medicine? SULFAMETHOXAZOLE; TRIMETHOPRIM or SMX-TMP (suhl fuh meth OK arlen zohl; trye METH oh prim) is a combination of a sulfonamide antibiotic and a second antibiotic, trimethoprim. It is used to treat or prevent certain kinds of bacterial infections. It will not work for colds, flu, or other viral infections. How should I use this medicine? Take this medicine by mouth with a full glass of water. Follow the directions on the prescription label. Take your medicine at regular intervals. Do not take it more often than directed. Do not skip doses or stop your medicine early. Talk to your academic support assistant regarding the use of this medicine in children. Special care may be needed. This medicine has been used in children as young as 2 months of age. What side effects may I notice from receiving this medicine? Side effects that you should report to your doctor or health health care recruiter as soon as possible: allergic reactions like skin rash or hives, swelling of the face, lips, or tongue breathing problems fever or chills, sore throat irregular heartbeat, chest pain joint or muscle pain pain or difficulty passing urine red pinpoint spots on skin redness, blistering, peeling or loosening of the skin, including inside the mouth unusual bleeding or bruising unusually weak or tired yellowing of the eyes or skin Side effects that usually do not require medical attention (report to your doctor or health health care recruiter if they continue or are bothersome): diarrhea dizziness headache loss of appetite nausea, vomiting nervousness What may interact with this medicine? Do not take this medicine with any of the following medications: aminobenzoate potassium dofetilide metronidazole This medicine may also interact with the following medications: IVET inhibitors like benazepril, enalapril, lisinopril, and ramipril cyclosporine digoxin diuretics indomethacin medicines for diabetes methenamine methotrexate phenytoin potassium supplements pyrimethamine sulfinpyrazone tricyclic antidepressants warfarin What if I miss a dose? If you miss a dose, take it as soon as you can. If it is almost time for your next dose, take only that dose. Do not take double or extra doses. Where should I keep my medicine? Keep out of the reach of children. Store at room temperature between 20 to 25 degrees C (68 to 77 degrees F). Protect from light. Throw away any unused medicine after the expiration date. What should I tell my health care provider before I take this medicine? They need to know if you have any of these conditions: anemia asthma being treated with anticonvulsants if you frequently drink alcohol containing drinks kidney disease liver disease low level of folic acid or zvkvndu-[id number]-bvddyvlcy dehydrogenase poor nutrition or malabsorption porphyria severe allergies thyroid disorder an unusual or allergic reaction to sulfamethoxazole, trimethoprim, sulfa drugs, other medicines, foods, dyes, or preservatives or trying to get breast-feeding What should I watch for while using this medicine? Tell your doctor or health health care recruiter if your symptoms do not improve. Drink several glasses of water a day to reduce the risk of kidney problems. Do not treat diarrhea with over the counter products. Contact your doctor if you have diarrhea that lasts more than 2 days or if it is severe and watery. This medicine can make you more sensitive to the sun. Keep out of the sun. If you cannot avoid being in the sun, wear protective clothing and use a sunscreen. Do not use sun lamps or tanning beds/booths. Acetaminophen Oral tablet What is this medicine? ACETAMINOPHEN (a set a JAN valeria fen) is a pain reliever. It is used to treat mild pain and fever. How should I use this medicine? Take this medicine by mouth with a glass of water. Follow the directions on the package or prescription label. Take your medicine at regular intervals. Do not take your medicine more often than directed. Talk to your academic support assistant regarding the use of this medicine in children. While this drug may be prescribed for children as young as 6 years of age for selected conditions, precautions do apply. What side effects may I notice from receiving this medicine? Side effects that you should report to your doctor or health health care recruiter as soon as possible: allergic reactions like skin rash, itching or hives, swelling of the face, lips, or tongue breathing problems fever or sore throat redness, blistering, peeling or loosening of the skin, including inside the mouth trouble passing urine or change in the amount of urine unusual bleeding or bruising unusually weak or tired yellowing of the eyes or skin Side effects that usually do not require medical attention (report to your doctor or health health care recruiter if they continue or are bothersome): headache nausea, stomach upset What may interact with this medicine? alcohol imatinib isoniazid other medicines with acetaminophen What if I miss a dose? If you miss a dose, take it as soon as you can. If it is almost time for your next dose, take only that dose. Do not take double or extra doses. Where should I keep my medicine? Keep out of reach of children. Store at room temperature between 20 and 25 degrees C (68 and 77 degrees F). Protect from moisture and heat. Throw away any unused medicine after the expiration date. What should I tell my health care provider before I take this medicine? They need to know if you have any of these conditions: if you frequently drink alcohol containing drinks liver disease an unusual or allergic reaction to acetaminophen, other medicines, foods, dyes or preservatives or trying to get breast-feeding What should I watch for while using this medicine? Tell your doctor or health health care recruiter if the pain lasts more than 10 days (5 days for children), if it gets worse, or if there is a new or different kind of pain. Also, check with your doctor if a fever lasts for more than 3 days. Do not take other medicines that contain acetaminophen with this medicine. Always read labels carefully. If you have questions, ask your doctor or pharmacist. If you take too much acetaminophen get medical help right away. Too much acetaminophen can be very dangerous and cause liver damage. Even if you do not have symptoms, it is important to get help right away. You have been given the following additional information: Confusion Bladder Infection, Male (Adult) Sulfamethoxazole, Trimethoprim Oral tablet Acetaminophen Oral tablet (Electronically signed by Yusef Fleming DO 12/01/2016 23:30)
--- NOTE | 2016-12-01 23:30 | ED DISCHARGE INSTRUCTIONS ---
Patient: MERRILL GONZALEZ General Instructions [facility] VisitID: [id number] Jered [address]ard [place], [place] [id number] 86y, M Registration Date/Time: 12/01/2016 Acute mental status change with confusion. Acute urinary tract infection with cystitis. INSTRUCTIONS Drink plenty of fluids. Warnings: Further evaluation is necessary in order to recheck abnormal lab, obtain test results, conduct further tests and assess the possibility of serious illness. It is very important to follow up with a physician. GENERAL WARNINGS: Return or contact your physician immediately if your condition worsens or changes unexpectedly, if not improving as expected, or if other problems arise. Your Current Medications: CONTINUE TAKING THE FOLLOWING MEDICATIONS: Aricept Oral : 10 mg. Aspirin Oral : Tablet Chewable 81 mg. Claritin Oral : Tablet 10 mg. Colace Oral : 100 mg. Combivent Respimat Inhalation. Docusate Calcium Oral. Domepezil 10mg * : at bedtime. Flomax Oral : 0.4 mg. Levothyroxine Sodium Oral : 50 mcg. Mens Multi Vitamin & Mineral Oral. Montelukast Sodium Oral. Omeprazole Oral : 20 mg daily. Oxygen 2L/nc continuous*. TraZODone HCl Oral : 50 mg at bedtime. Vitamin B-6 Oral. Zyrtec*. Prescription Medications: Bactrim DS 800 mg / 160 mg: Take 1 tablet orally every 12 hours for 7 days. Dispense fourteen (14). No refills. Substitution is permissible. OTC Medications: Acetaminophen (available over the counter): take according to label instructions. Follow-up: Follow up with your doctor tomorrow as scheduled. Follow-up with: Gamal Acuna MD, Family Practice, , [facility], [address] [place], [place] [address]nd [facility] [place], [id number] Follow up. Reason for referral: You may go to the walk-in clinic or to your primary care provider as needed in the next 2 days - sooner if worse. ADDITIONAL INFORMATION Confusion Confusion is a change in a persons ability to think clearly. There may be trouble recognizing familiar people and places, or knowing what day it is. Memory, judgement and decision-making may also be affected. In severe cases there may be limited or no response to verbal commands. Confusion may occur suddenly or develop gradually over time. There are many injuries and medical conditions that can cause this problem. These include brain injury, side effect of medication, intoxication, withdrawal from drugs, infection, stroke, dementia,mental illness and other causes. The exam and testing today did not show the cause of this problem. Further testing will be needed. Specific treatment and hope for recovery depend on the cause of this symptom. Home Care: Be sure someone is with the confused person at all times. He/she should not be left alone or unsupervised. Keep medicines (prescription and [id number]) in a secure place, under the caregivers control. A person with confusion should not be allowed to take their own medicines.This needs to be supervised by the caregiver. Ways to help a person with confusion: Activities:Establish a daily routine. Change can be a source of stress for someone with confusion. Make a time schedule for common tasks such as: bathing, dressing, taking medicines, meals, going for walks, shopping, naps and bed time. Communication:Speak slowly and clearly with a gentle tone of voice. Use short simple words and sentences. Ask one question at a time. Do not interrupt, criticize or argue. Be calm and supportive. Use friendly facial expressions. Use pointing and touching to help communicate. If there has been loss of long-term memory, do not ask questions about past events. This would only cause frustration for the person. Behavioral tips:Use lists, signs, family photos, clocks and calendars as memory aids. Label cabinets and drawers. Try to distract, not confront, the patient. When he/she becomes frustrated or upset, redirect his/her attention to eating or some other activity of interest. Medical-Legal tips: If this proves to be a permanent condition, talk to your doctor and/or petroleum refinery operator about getting a Power of Director Of Quality Control for health care and for financial decisions. It is best to do this while the person can still sign legal documents and make his/raul own legal decisions. Otherwise, a court order will be required. Follow-Up with the patients doctor or as advised by our staff for further testing. Get Prompt Medical Attention if any of the following occur: Frequent falling Refusal to eat or drink Violent behavior or behavior becomes too difficult to manage at home Increased drowsiness, or failure to respond normally Increasing headache, nausea or repeated vomiting Numbness or weakness of the face, one arm or one leg Slurred speech, trouble speaking, walking or seeing Fainting spell, dizziness or seizure Unexplained fever over 100.4 F (38.0 C) oral Bladder Infection,Male (Adult) A bladder infection ("cystitis" or "UTI") usually causes a constant urge to urinate, and a burning when passing urine. Urine may be cloudy, smelly or dark. There may be also be pain in the lower abdomen. Cystitis in males is not common. It may be caused by a partial blockage in the urinary system that keeps the bladder from emptying completely. This is most often related to an enlarged prostate gland. Home Care: Drink lots of fluids (at least 6-8 glasses a day). This will flush the bacteria out of your bladder. Avoid sexual intercourse until your symptoms are gone. Avoid caffeine, alcohol, and spicy foods. They could irritate the bladder. A bladder infection is treated with antibiotics. You may also be given Pyridium (generic - phenazopyridine) to reduce burning with urination. This will cause urine to become a bright orange color, which can stain clothing. Follow Up with your doctor or this facility if ALL symptoms have not cleared within five days. It is important to keep your follow up appointment to discuss with your doctor the need for further tests of the urinary tract. Get Prompt Medical Attention if any of the following occur: Fever of 100.4F (38C) or higher, or as directed by your healthcare provider No improvement by the third day of treatment Increasing back or abdominal pain Repeated vomiting; unable to keep medicine down Weakness, dizziness or fainting Sulfamethoxazole, Trimethoprim Oral tablet What is this medicine? SULFAMETHOXAZOLE; TRIMETHOPRIM or SMX-TMP (suhl fuh meth OK arlen zohl; trye METH oh prim) is a combination of a sulfonamide antibiotic and a second antibiotic, trimethoprim. It is used to treat or prevent certain kinds of bacterial infections. It will not work for colds, flu, or other viral infections. How should I use this medicine? Take this medicine by mouth with a full glass of water. Follow the directions on the prescription label. Take your medicine at regular intervals. Do not take it more often than directed. Do not skip doses or stop your medicine early. Talk to your checkering machine operator regarding the use of this medicine in children. Special care may be needed. This medicine has been used in children as young as 2 months of age. What side effects may I notice from receiving this medicine? Side effects that you should report to your doctor or health care aide as soon as possible: allergic reactions like skin rash or hives, swelling of the face, lips, or tongue breathing problems fever or chills, sore throat irregular heartbeat, chest pain joint or muscle pain pain or difficulty passing urine red pinpoint spots on skin redness, blistering, peeling or loosening of the skin, including inside the mouth unusual bleeding or bruising unusually weak or tired yellowing of the eyes or skin Side effects that usually do not require medical attention (report to your doctor or health care aide if they continue or are bothersome): diarrhea dizziness headache loss of appetite nausea, vomiting nervousness What may interact with this medicine? Do not take this medicine with any of the following medications: aminobenzoate potassium dofetilide metronidazole This medicine may also interact with the following medications: IVET inhibitors like benazepril, enalapril, lisinopril, and ramipril cyclosporine digoxin diuretics indomethacin medicines for diabetes methenamine methotrexate phenytoin potassium supplements pyrimethamine sulfinpyrazone tricyclic antidepressants warfarin What if I miss a dose? If you miss a dose, take it as soon as you can. If it is almost time for your next dose, take only that dose. Do not take double or extra doses. Where should I keep my medicine? Keep out of the reach of children. Store at room temperature between 20 to 25 degrees C (68 to 77 degrees F). Protect from light. Throw away any unused medicine after the expiration date. What should I tell my health care provider before I take this medicine? They need to know if you have any of these conditions: anemia asthma being treated with anticonvulsants if you frequently drink alcohol containing drinks kidney disease liver disease low level of folic acid or [id number] dehydrogenase poor nutrition or malabsorption porphyria severe allergies thyroid disorder an unusual or allergic reaction to sulfamethoxazole, trimethoprim, sulfa drugs, other medicines, foods, dyes, or preservatives or trying to get breast-feeding What should I watch for while using this medicine? Tell your doctor or health care aide if your symptoms do not improve. Drink several glasses of water a day to reduce the risk of kidney problems. Do not treat diarrhea with over the counter products. Contact your doctor if you have diarrhea that lasts more than 2 days or if it is severe and watery. This medicine can make you more sensitive to the sun. Keep out of the sun. If you cannot avoid being in the sun, wear protective clothing and use a sunscreen. Do not use sun lamps or tanning beds/booths. Acetaminophen Oral tablet What is this medicine? ACETAMINOPHEN (a set a JAN valeria fen) is a pain reliever. It is used to treat mild pain and fever. How should I use this medicine? Take this medicine by mouth with a glass of water. Follow the directions on the package or prescription label. Take your medicine at regular intervals. Do not take your medicine more often than directed. Talk to your checkering machine operator regarding the use of this medicine in children. While this drug may be prescribed for children as young as 6 years of age for selected conditions, precautions do apply. What side effects may I notice from receiving this medicine? Side effects that you should report to your doctor or health care aide as soon as possible: allergic reactions like skin rash, itching or hives, swelling of the face, lips, or tongue breathing problems fever or sore throat redness, blistering, peeling or loosening of the skin, including inside the mouth trouble passing urine or change in the amount of urine unusual bleeding or bruising unusually weak or tired yellowing of the eyes or skin Side effects that usually do not require medical attention (report to your doctor or health care aide if they continue or are bothersome): headache nausea, stomach upset What may interact with this medicine? alcohol imatinib isoniazid other medicines with acetaminophen What if I miss a dose? If you miss a dose, take it as soon as you can. If it is almost time for your next dose, take only that dose. Do not take double or extra doses. Where should I keep my medicine? Keep out of reach of children. Store at room temperature between 20 and 25 degrees C (68 and 77 degrees F). Protect from moisture and heat. Throw away any unused medicine after the expiration date. What should I tell my health care provider before I take this medicine? They need to know if you have any of these conditions: if you frequently drink alcohol containing drinks liver disease an unusual or allergic reaction to acetaminophen, other medicines, foods, dyes or preservatives or trying to get breast-feeding What should I watch for while using this medicine? Tell your doctor or health care aide if the pain lasts more than 10 days (5 days for children), if it gets worse, or if there is a new or different kind of pain. Also, check with your doctor if a fever lasts for more than 3 days. Do not take other medicines that contain acetaminophen with this medicine. Always read labels carefully. If you have questions, ask your doctor or pharmacist. If you take too much acetaminophen get medical help right away. Too much acetaminophen can be very dangerous and cause liver damage. Even if you do not have symptoms, it is important to get help right away. You have been given the following additional information: Confusion Bladder Infection, Male (Adult) Sulfamethoxazole, Trimethoprim Oral tablet Acetaminophen Oral tablet (Electronically signed by Yusef Fleming DO 12/01/2016 23:30)
--- NOTE | 2016-12-01 23:30 | ED MAR SUMMARY ---
..... Medication Administration Record [facility] [address] [place] [address] Patient: MERRILL GONZALEZ Visit ID: [id number] 86y, M Weight: 90.7 kg Height/Length: 69 in BMI: 29.5 ALLERGIES: No Known Drug Allergy Start 19:19 12/01/2016 Caroline Molina RAmaliaNAmalia Medication Administered: IV NS (SALINE), Dose: IV Fluids over 30 minute(s), Rate: 250 mL/hr, Bolus: 500 mL over 30 minute(s), Dispensed: 1000 mL bag, Site: #1 right AC. Medication Ordered: IV NS : initial bolus 500 mL (1000 mL/hr), then 250 mL/hr for X2 (NOW). Start 20:09 12/01/2016 Sharon Veras RElizabeth, Stop 20:35 12/01/2016 Caroline Molina RAmaliaNAmalia Medication Administered: CEFTRIAXONE [IVPB], Dose: 1 gm IVPB over 20 minute(s), Rate: 50 mL/hr, Dispensed: 50 mL bag, Site: #1 right AC. Medication Ordered: Ceftriaxone IV 1 gm/50mL (NOW).
--- NOTE | 2016-12-01 23:30 | ED MAR SUMMARY ---
..... Medication Administration Record [facility] [address] [place] [address] Patient: MERRILL GONZALEZ Visit ID: [id number] 86y, M Weight: 90.7 kg Height/Length: 69 in BMI: 29.5 ALLERGIES: No Known Drug Allergy Start 19:19 12/01/2016 Caroline Molina RAmaliaNAmalia Medication Administered: IV NS (SALINE), Dose: IV Fluids over 30 minute(s), Rate: 250 mL/hr, Bolus: 500 mL over 30 minute(s), Dispensed: 1000 mL bag, Site: #1 right AC. Medication Ordered: IV NS : initial bolus 500 mL (1000 mL/hr), then 250 mL/hr for X2 (NOW). Start 20:09 12/01/2016 Sharon Veras RElizabeth, Stop 20:35 12/01/2016 Caroline Molina RAmaliaNAmalia Medication Administered: CEFTRIAXONE [IVPB], Dose: 1 gm IVPB over 20 minute(s), Rate: 50 mL/hr, Dispensed: 50 mL bag, Site: #1 right AC. Medication Ordered: Ceftriaxone IV 1 gm/50mL (NOW).
== END 2016-12-01 21:15 | disposition home or self-care (01) ==
LOC: ED SRH 18:06
DX: N30.90 Cystitis, unspecified without hematuria (principal); R41.82 Altered mental status, unspecified; I10 Essential (primary) hypertension; E07.9 Disorder of thyroid, unspecified; Z79.899 Other long term (current) drug therapy
CPT/HCPCS: 90004; 90098; 90100; 90469; 90616; 91320; 91556; 92530; 92610; 92720; 92760; 92761; 92762; 92763; 92764; 92765; 92766; 92767; 93140; 94060; 95059